=== PATIENT | female | born 1940 | race Caucasian/White ===

== ENCOUNTER → 2023-12-28 14:39 | Outpatient (REF) | payer MEDICARE, SELFPAY ==
[2023-12-28 15:11] LABS: Potassium 4.4 mmol/L (3.5-5.1)
== END ==
LOC: CLAB 14:39
PROVIDERS: ATTENDING PHYSICIAN Internal Medicine
DX: E87.5 Hyperkalemia (principal)
CPT/HCPCS: 36415; 84132

== ENCOUNTER 2024-03-11 11:00 | Emergency (ER) | payer MEDICARE, SELFPAY ==
[2024-03-11 11:07] VITALS: BP 131/43; BMI 32.0
[2024-03-11 11:24] LABS: % Eosinophils 2.9 % (0-6); % Immature Granulocytes 0.4 % (0-0.5); % Lymphocytes 16.6 % (20.5-51.1); % Monocytes 6.7 % (1.7-9.3); % Neutrophils 72.4 % (42.2-75.2); Absolute Basophils 0.1 10^3/uL (0-0.2); Absolute Eosinophils 0.4 10^3/uL (0-0.7); Absolute Immature Granulocytes 0.1 10^3/uL (0-0.05); Absolute Lymphocytes 2.3 10^3/uL (1.2-3.4); Absolute Monocytes 0.9 10^3/uL (0.1-0.6); Absolute Neutrophils 9.9 10^3/uL (1.4-6.5); Hematocrit 32.6 % (37.0-47.0); Hemoglobin 10.8 g/dL (12.0-16.0); Mean Corp Hgb Conc. 33.1 g/dL (33.0-37.0); Mean Corpuscular Hgb 32.1 pg (27.0-31.0); Mean Platelet Volume 10.4 fL (7.4-10.4); Nucleated Red Blood Cells % 0 %; Platelet Count 422 10^3/uL (130-400); Red Blood Cell Count 3.36 10^6/uL (4.20-5.40); Red Cell Dist. Width 14.2 % (11.5-14.5); White Blood Cell Count 13.7 10^3/uL (4.8-10.8)
[2024-03-11 11:35] LABS: Glucose - Point of Care 144 mg/dl (70-99)
[2024-03-11 11:40] LABS: ALT (SGPT) 49 U/L (0-35); AST (SGOT) 91 U/L (14-36); Albumin 2.7 g/dl (3.5-5.0); Alkaline Phosphatase 218 U/L (38-126); Blood Urea Nitrogen 11 mg/dl (7-17); Calcium 8.5 mg/dl (8.4-10.2); Carbon Dioxide 27 mmol/L (22-30); Chloride 105 mmol/L (98-107); Estimated Creatinine Clearance 66 ml/min; Glucose 123 mg/dl (70-99); Potassium 3.5 mmol/L (3.5-5.1); Sodium 137 mmol/L (135-145); Total Bilirubin 0.4 mg/dl (0.2-1.3); Total Protein 6.2 g/dl (6.3-8.2); eGFR > 60.00
[2024-03-11 14:34] VITALS: BP 149/79
[2024-03-11 15:00] VITALS: BP 149/80
[2024-03-11 16:00] VITALS: BP 158/94
--- NOTE | 2024-03-11 16:21 | ED.GENMED ---
History of Present Illness
General
Chief Complaint: Seizure
Source: patient and family
Exam Limitations: none
Time Seen by Provider: 03/11/24 11:22
Travel History
Have you had any contact with someone who has COVID-19?: No
Do you have any symptoms of coronavirus? Fever > 100 degrees, chills, cough, shortness of breath, sore throat, loss of taste or smell, muscle aches, or headache?: No
History of Present Illness
History of Present Illness:
83-year-old female with unfortunate history of metastatic colon cancer who presents after she had seizures today. She has had seizures in the past was not had open about a year. Patient has been dealing with orthostatic hypotension today after
standing up with physical therapy she had an event. Daughter is not sure if she had separate events but suspect she did have several small seizures. Patient now offers no current complaints but has been having some lower abdominal discomfort.
Patient was trying to get through some rehab to be able to speak with surgery regarding the possible removal of the colon tumor. The patient does have a colonic stent. Patient is on palliative care with Dr. Chavez.
Past History
Past History
ED Past Medical History: Cancer (Colon cancer), CVA (right sided weakness), HTN, Hypercholesterolemia, Seizures, Hypothyroidism and Other (UTI, )
ED Past Surgical History: None
Social History
Tobacco: Former smoker
Alcohol: None
Drug: None
Personal:
Living: with family
Employment: Retired
Family History
Family History: Other (reviewed and non-contributory)
Phy Exam
Physical Exam
Physical Exam:
CONSTITUTIONAL Patient alert and oriented to person, place and time. Well-appearing. Vital signs reviewed.
HEAD atraumatic, normocephalic.
EYES eyelids normal to inspection,, Extraocular muscles intact, Conjunctiva normal, Sclera normal.
NECK normal range of motion, Trachea midline, no jugular venous distention.
RESPIRATORY CHEST No respiratory distress noted, Chest expansion equal, Bilateral breath sounds clear.
CARDIOVASCULAR regular rate and rhythm, Heart sounds normal.
ABDOMEN abdomen nontender, moderate lower abdominal tenderness
BACK normal inspection, no obvious deformities
UPPER EXTREMITY range of motion normal, Motor strength normal, no cyanosis, no edema.
LOWER EXTREMITY range of motion normal, Motor strength normal, no cyanosis, no edema.
NEURO Speech normal, No focal motor deficits, Angelita coma scale 15, Memory normal, Cranial Nerves intact to screening exam.
SKIN skin warm, dry, and normal in color.
PSYCHIATRIC patient oriented to person place and time, Normal affect.
Course
Orders/Labs/Results
Orders:
Orders
03/11/24 11:17
Complete Blood Count/With Diff Urgent
Comprehensive Metabolic Panel Urgent
Keppra (Levetiracetam) [S] Routine
Comment: ADD ON
03/11/24 11:22
CT Head W/o Iv Contrast Urgent
Comment:
Reason For Exam: seizure
Bedside Glucose- Treatment ONCE
03/11/24 11:36
Add On- LAB Urgent
Tests Added?: Keppra
03/11/24 12:30
CT Abd/pelvis W Iv Cont Urgent
Comment:
Reason For Exam: lower abd pain, h/o colon ca
03/11/24 16:25
Bisacodyl [Dulcolax] 10 mg RECTAL NOW STA
Abnormal Lab Results
03/11/24 03/11/24
11:17 11:33
WBC 13.7 H 10^3/uL
(4.8-10.8)
RBC 3.36 L 10^6/uL
(4.20-5.40)
Hgb 10.8 L g/dL
(12.0-16.0)
Hct 32.6 L %
(37.0-47.0)
MCH 32.1 H pg
(27.0-31.0)
Plt Count 422 H 10^3/uL
(130-400)
Abs Immat Gran (auto) 0.1 H 10^3/uL
(0-0.05)
Absolute Neuts (auto) 9.9 H 10^3/uL
(1.4-6.5)
Absolute Monos (auto) 0.9 H 10^3/uL
(0.1-0.6)
Lymphocytes % 16.6 L %
(20.5-51.1)
Glucose 123 H mg/dl
(70-99)
AST 91 H U/L
(14-36)
ALT 49 H U/L
(0-35)
Alkaline Phosphatase 218 H U/L
(38-126)
Total Protein 6.2 L g/dl
(6.3-8.2)
Albumin 2.7 L g/dl
(3.5-5.0)
POC Glucose 144 H mg/dl
(70-99)
03/11/24 11:17
03/11/24 11:17
Vital Signs
Initial and Last Documented VS:
Initial Vital Signs
Temp Pulse Resp BP Pulse Ox
97.4 F 87 23 131/43 92
03/11/24 11:07 03/11/24 11:07 03/11/24 11:07 03/11/24 11:07 03/11/24 11:07
Last Documented Vital Signs
Temp Pulse Resp BP Pulse Ox
97.4 F 85 18 158/94 92
03/11/24 11:07 03/11/24 16:15 03/11/24 16:15 03/11/24 16:00 03/11/24 16:15
MDM/Problems Addressed
MDM/Problems Addressed:
Metastatic colon cancer, orthostatic hypotension, seizure disorder, acute seizures
*Radiology
Radiology exam reviewed: radiology read reviewed
*Pulse Oximetry
Patient hypoxic: no
*Licensing Worker Interpretation
Rate: normal
Interpretation: normal
Rhythm: sinus
*Critical Care Note
Total Time (30-74mins, 75-104mins- exclusive of procedures): 30 minutes
Data Reviewed
Review of Other/Old Records Reveals: Discharge Summary (Discharge summary from November 2023)
Source: patient
Prescriptions/Medications Considered But Not Given:
Ativan considered but no further seizures
Patient Management
Discussion with other providers: Palliative Senior [facility] (Case discussed with palliative care Dr. Chavez)
Escalation/DeEscalation of care consider admission/obs:
83-year-old female who had been diagnosed with colon cancer was trying to rehab to get stronger for possible surgery. Unfortunately she has several setbacks. Today had a seizure event which she has not had some time. I suspect her seizure event
was triggered by tension as she had just and felt little lightheaded. Mild lower abdominal tenderness noted. CT shows progression of her metastatic disease. Long discussion with family. At this time patient does not want to pursue any further
treatment of her cancer. I did offer admission/observation but patient would rather go home. Think this is reasonable. I did recommend enema but the patient would like to hold off. Will trial suppository and continue MiraLAX. Case was discussed
with palliative care will follow her closely. Patient will also follow-up with her neurologist
ED Attending Note
-
Portions of this chart may have been created with voice recognition software.� Occasional wrong word or��sound alike� substitutions may have occurred due to the inherent limitations of voice recognition software.
Discharge Plan
Departure
Patient Disposition: Home (Routine Discharge)
Date of Disposition: 03/11/24
Time of Disposition: 16:26
Patient with high blood pressure during this ER visit?: Yes
Discharge Problem:
Seizure, Orthostatic hypotension, Metastatic colon cancer to liver
Instructions: Seizures, Adult (DC), BLOOD PRESSURE
Prescriptions:
No Action
Centrum Silver Women 1 EACH tablet
1 ea PO DAILY
pantoprazole 40 MG tablet,delayed release (DR/EC)
40 mg PO DAILY
cyanocobalamin (vitamin B-12) 100 MCG tablet
100 mcg PO DAILY
acetaminophen 325 mg Tablet
650 mg PO Q4H MDD 3000mg/24hrs PRN (Reason: mild pain/fever>100.4)
atorvastatin 80 MG tablet
80 mg PO QPM
gabapentin 300 MG capsule
300 mg PO HS
calcium carbonate 500 mg calcium (1,250 mg) Tablet
500 mg PO BID
levothyroxine 125 mcg Tablet
125 mcg PO DAILY
gabapentin 300 mg Capsule
300 mg PO BID@0830,1430
levetiracetam 500 MG tablet
1,000 mg PO Q12H
nystatin [Nystop] 100,000 unit/gram powder
1 applic TOPICAL BIDPRN PRN (Reason: breasts and folds)
fludrocortisone 0.1 mg tablet
0.2 mg PO DAILY
midodrine 10 mg tablet
10 mg PO MOTUWETHFR
Rx Instructions:
10mg once daily in the AM before therapy [id number]--Monday
aspirin [Children's Aspirin] 81 mg tablet,chewable
81 mg PO DAILY
polyethylene glycol 3350 [Miralax] 17 gram/dose Powder
17 g PO DAILY
lidocaine HCl 2 % Gel
1 applic TOPICAL HS PRN (Reason: left upper thigh pain)
Referrals:
Marcelo Viramontes MD [Family Provider] -
Activity Restrictions/Additional Instructions:
Please see your doctor and your palliative care doctor in follow-up in the next 3 days. Please also follow-up with your neurologist. Return immediately for fevers, vomiting, recurrent seizures or any other concerns.
Interventions
Interventions:
*Risk Screen - Suicide Last Done: 03/11/24 11:07
*General Assessment Last Done: 03/11/24 11:07
*Neglect/Abuse Screening Last Done: 03/11/24 11:07
ED- Fall Risk Assessment Last Done: 03/11/24 11:14
*ED COVID-19 Vaccine History Last Done: 03/11/24 11:07
ED- Cardiac Assessment Last Done: 03/11/24 11:14
ED- Neurological Assessment Last Done: 03/11/24 11:14
ED- Pulmonary Assessment Last Done: 03/11/24 11:14
Discharge Date and Time
Print Language: LATVIAN
[2024-03-11] MEDS: DULCOLAX 10 MG RECTAL (17:04)
[2024-03-12 15:43] LABS: Keppra (Levetiracetam) 45 ug/mL (10-40)
== END 2024-03-11 17:52 | disposition home or self-care (01) ==
LOC: EMR 11:00
PROVIDERS: EMERGENCY PHYSICIAN Emergency Medicine; FAMILY PHYSICIAN Internal Medicine
DX: R56.9 Unspecified convulsions (principal); I95.1 Orthostatic hypotension; C18.9 Malignant neoplasm of colon, unspecified; C78.7 Secondary malignant neoplasm of liver and intrahepatic bile duct; Z87.891 Personal history of nicotine dependence
CPT/HCPCS: 99285; 70450; 74177; 80053; 80177; 82962; 85025; Q9967

== ENCOUNTER 2024-07-05 21:02 | Emergency (ER) | payer MEDICARE, SELFPAY ==
[2024-07-05 21:10] VITALS: BP 91/77
[2024-07-05 21:13] VITALS: BP 91/77
[2024-07-05 21:16] VITALS: BMI 33.4
[2024-07-05 21:25] LABS: % Basophils 1.1 % (0-2); % Eosinophils 2.2 % (0-6); % Immature Granulocytes 0.4 % (0-0.5); % Lymphocytes 20.2 % (20.5-51.1); % Monocytes 6.4 % (1.7-9.3); % Neutrophils 69.7 % (42.2-75.2); Absolute Basophils 0.1 10^3/uL (0-0.2); Absolute Eosinophils 0.3 10^3/uL (0-0.7); Absolute Immature Granulocytes 0.1 10^3/uL (0-0.05); Absolute Lymphocytes 2.6 10^3/uL (1.2-3.4); Absolute Monocytes 0.8 10^3/uL (0.1-0.6); Absolute Neutrophils 8.8 10^3/uL (1.4-6.5); Hematocrit 31.9 % (37.0-47.0); Hemoglobin 10.6 g/dL (12.0-16.0); Mean Corp Hgb Conc. 33.2 g/dL (33.0-37.0); Mean Corpuscular Hgb 31.3 pg (27.0-31.0); Mean Corpuscular Volume 94.1 fL (81.0-99.0); Mean Platelet Volume 10.2 fL (7.4-10.4); Nucleated Red Blood Cells % 0 %; Platelet Count 366 10^3/uL (130-400); Red Blood Cell Count 3.39 10^6/uL (4.20-5.40); Red Cell Dist. Width 14.6 % (11.5-14.5); White Blood Cell Count 12.7 10^3/uL (4.8-10.8)
[2024-07-05 21:36] VITALS: BP 106/51
[2024-07-05 21:40] LABS: ALT (SGPT) 60 U/L (0-35); AST (SGOT) 107 U/L (14-36); Albumin 3.1 g/dl (3.5-5.0); Alkaline Phosphatase 333 U/L (38-126); Blood Urea Nitrogen 9 mg/dl (7-17); Calcium 8.7 mg/dl (8.4-10.2); Carbon Dioxide 25 mmol/L (22-30); Chloride 106 mmol/L (98-107); Estimated Creatinine Clearance 67 ml/min; Glucose 133 mg/dl (70-99); Potassium 4.1 mmol/L (3.5-5.1); Sodium 136 mmol/L (135-145); Total Bilirubin 0.5 mg/dl (0.2-1.3); Total Protein 6.5 g/dl (6.3-8.2); eGFR > 60.00
--- NOTE | 2024-07-05 21:47 | ED.GENMED ---
History of Present Illness
<Renee Henry NP - Last Filed: 07/06/24 19:23>
General
Chief Complaint: Fainting/Passed Out
Source: patient and family (daughter)
Exam Limitations: none
Time Seen by Provider: 07/05/24 21:16
History of Present Illness
History of Present Illness:
Patient to ED for eval after seizure tonight. Patient was sitting watching TV when daughter noted that patient did not look right to her. Patient states she did not feel well and then had an absent seizure. Daughter states she initially stares
and is not responsive. Daughter states at one point patient started to snore but still not responsive. Daughter reports it took approx 45 minutes for patient to become responsive. She is now awake and alert, has no complaints. Takes 1500mg Keppra
BID. Daughter and pateint report compliance. Treated for UTI last week, otherwise no changes to care. History of COlon CA with mets to liver. She is not treating. Follows [facility] Palliative care. Brought to ED by EMS for eval.
Past History
<Renee Henry SALES RELATIONSHIP MANAGER - Last Filed: 07/06/24 19:23>
Past History
ED Past Medical History: Cancer (Colon cancer), CVA (right sided weakness), HTN, Hypercholesterolemia, Seizures, Hypothyroidism and Other (UTI, )
ED Past Surgical History: None
Social History
Tobacco: Former smoker
Alcohol: None
Drug: None
Personal:
Living: with family
Employment: Retired
Family History
Family History: Other (reviewed and non-contributory)
Review of Systems
<Renee Henry SALES RELATIONSHIP MANAGER - Last Filed: 07/06/24 19:23>
Review of Systems
Allergies reviewed?: Yes
All Other Systems: ROS reviewed and negative except as documented in HPI and ROS
Constitutional: Reports no symptoms
EENT: Reports no symptoms
Respiratory: Reports no symptoms
Cardiac: Reports no symptoms
ABD/GI: Reports no symptoms
Musculoskeletal: Reports no symptoms
Skin: Reports no symptoms
Neurological: Reports other (Absent seizure NATURALIST)
Psychiatric: Reports no symptoms
Phy Exam
<Renee Henry NP - Last Filed: 07/06/24 19:23>
General Physical Exam
General Presentation: well appearing and no apparent distress
General age: appears stated age
General Skin: warm and dry
General Habitus: normal
Cardiovascular Exam
Cardiovascular Exam: regular rate/rhythm
Gastrointestinal Exam
Gastrointestinal Exam: non tender, soft, no organomegaly and non distended
Neurological Exam
Neurological Exam: alert, oriented x3, CN II-XII intact, no motor deficits, no sensory deficits and speech normal
Musculoskeletal Exam
Musculoskeletal Exam: full ROM and neuro vasc intact
Skin Exam
Skin Exam: normal color, warm/dry and no rash
Psychiatric Exam
Psychiatric Exam: normal mood/affect
Course
<Renee Henry NP - Last Filed: 07/06/24 19:23>
Orders/Labs/Results
Orders:
Orders
07/05/24 21:16
Electrocardiogram (*1) Urgent
Reason for Study: Chest Pain
Cardiac Monitoring- Treatment ONCE
EKG- Treatment ONCE
07/05/24 21:19
Complete Blood Count/With Diff Urgent
Comprehensive Metabolic Panel Urgent
Troponin I Urgent
07/05/24 21:53
CT Head W/o Iv Contrast Urgent
Comment:
Reason For Exam: seizure
07/05/24 22:02
Keppra (Levetiracetam) [S] Urgent
07/05/24 23:28
Urinalysis Reflex To Culture Urgent
Date Specimen was Collected: 07/05/24
Time Specimen was Collected: 23:28
Urine Microscopic Reflex Cult Urgent
Urine Culture Urgent
MEL Source: U
Specimen Description:
Date Specimen was Collected: 07/05/24
Time Specimen was Collected: 23:28
Abnormal Lab Results
07/05/24 07/05/24
21:19 23:28
WBC 12.7 H 10^3/uL
(4.8-10.8)
RBC 3.39 L 10^6/uL
(4.20-5.40)
Hgb 10.6 L g/dL
(12.0-16.0)
Hct 31.9 L %
(37.0-47.0)
MCH 31.3 H pg
(27.0-31.0)
RDW 14.6 H %
(11.5-14.5)
Abs Immat Gran (auto) 0.1 H 10^3/uL
(0-0.05)
Absolute Neuts (auto) 8.8 H 10^3/uL
(1.4-6.5)
Absolute Monos (auto) 0.8 H 10^3/uL
(0.1-0.6)
Lymphocytes % 20.2 L %
(20.5-51.1)
Glucose 133 H mg/dl
(70-99)
AST 107 H U/L
(14-36)
ALT 60 H U/L
(0-35)
Alkaline Phosphatase 333 H U/L
(38-126)
Albumin 3.1 L g/dl
(3.5-5.0)
Ur Occult Blood Reflex 3+ A
(Negative)
Leukocyte Esterase Rfl 2+ A
(Negative)
Urine RBC 3-6 A /HPF
(0-2)
Urine WBC (Reflex) 11-15 A /HPF
(0-5)
Urine Bacteria (Reflex) Moderate A
(Negative)
07/05/24 21:19
07/05/24 21:19
Vital Signs
Initial and Last Documented VS:
Initial Vital Signs
Pulse Ox
93
07/05/24 21:08
Last Documented Vital Signs
Temp Pulse Resp BP Pulse Ox
98.4 F 102 23 110/72 94
07/05/24 21:13 07/06/24 01:08 07/06/24 01:08 07/06/24 01:08 07/06/24 01:08
<Ronald Scott MD - Last Filed: 07/06/24 01:04>
Orders/Labs/Results
Orders:
Orders
07/05/24 21:16
Electrocardiogram (*1) Urgent
Reason for Study: Chest Pain
Cardiac Monitoring- Treatment ONCE
EKG- Treatment ONCE
07/05/24 21:19
Complete Blood Count/With Diff Urgent
Comprehensive Metabolic Panel Urgent
Troponin I Urgent
07/05/24 21:53
CT Head W/o Iv Contrast Urgent
Comment:
Reason For Exam: seizure
07/05/24 22:02
Keppra (Levetiracetam) [S] Urgent
07/05/24 23:28
Urinalysis Reflex To Culture Urgent
Date Specimen was Collected: 07/05/24
Time Specimen was Collected: 23:28
Urine Microscopic Reflex Cult Urgent
Urine Culture Urgent
MEL Source: U
Specimen Description:
Date Specimen was Collected: 07/05/24
Time Specimen was Collected: 23:28
Abnormal Lab Results
07/05/24 07/05/24
21:19 23:28
WBC 12.7 H 10^3/uL
(4.8-10.8)
RBC 3.39 L 10^6/uL
(4.20-5.40)
Hgb 10.6 L g/dL
(12.0-16.0)
Hct 31.9 L %
(37.0-47.0)
MCH 31.3 H pg
(27.0-31.0)
RDW 14.6 H %
(11.5-14.5)
Abs Immat Gran (auto) 0.1 H 10^3/uL
(0-0.05)
Absolute Neuts (auto) 8.8 H 10^3/uL
(1.4-6.5)
Absolute Monos (auto) 0.8 H 10^3/uL
(0.1-0.6)
Lymphocytes % 20.2 L %
(20.5-51.1)
Glucose 133 H mg/dl
(70-99)
AST 107 H U/L
(14-36)
ALT 60 H U/L
(0-35)
Alkaline Phosphatase 333 H U/L
(38-126)
Albumin 3.1 L g/dl
(3.5-5.0)
Ur Occult Blood Reflex 3+ A
(Negative)
Leukocyte Esterase Rfl 2+ A
(Negative)
Urine RBC 3-6 A /HPF
(0-2)
Urine WBC (Reflex) 11-15 A /HPF
(0-5)
Urine Bacteria (Reflex) Moderate A
(Negative)
07/05/24 21:19
07/05/24 21:19
Vital Signs
Initial and Last Documented VS:
Initial Vital Signs
Pulse Ox
93
07/05/24 21:08
Last Documented Vital Signs
Temp Pulse Resp BP Pulse Ox
98.4 F 102 23 110/72 94
07/05/24 21:13 07/06/24 01:08 07/06/24 01:08 07/06/24 01:08 07/06/24 01:08
<Renee Henry NP - Last Filed: 07/06/24 19:23>
*Radiology
Radiology exam reviewed: radiology read reviewed
*Critical Care Note
Total Time (30-74mins, 75-104mins- exclusive of procedures): Not Applicable
ED Attending Note
<Renee Henry NP - Last Filed: 07/06/24 19:23>
-
Portions of this chart may have been created with voice recognition software.� Occasional wrong word or��sound alike� substitutions may have occurred due to the inherent limitations of voice recognition software.
<Ronald Scott MD - Last Filed: 07/06/24 01:04>
ED Attending Note
Patient seen and examined by attending physician: Yes
ED Attending Note:
I have seen and evaluated the patient with a [id number] encounter. I have spoken to the advance practicer provider and involved in the medical history, the physical exam, medical decision making.
Evaluation and management service: agree unless noted differently below.
Results interpretation: agree unless noted differently below.
Focused HPI: 84-year-old female with history as documented presents after a seizure. Witnessed seizure by her daughter. Has a known seizure disorder follows with neurology as an outpatient. Takes Keppra 1500 mg twice daily and reports compliance.
Notably had recent treatment with Macrobid for UTI last week; only symptom was generalized fatigue.
Physical exam: Awake and alert, oriented x 3. Vital signs normal on my assessment. Shows no gross neurologic deficits in the extremities equally.
Medical Decision Makin-year-old female presents for evaluation after witnessed seizure in the setting of known seizure disorder. Apparently transient hypotension for EMS that resolved with fluids. She has been observed here in the emergency
room is back to baseline. She was evaluated with basic blood work which was essentially in line with her baseline. She had CT head which was negative. She had a urinalysis which appears at least somewhat contaminated but does have bacteria and
pyuria�culture sent off, cefdinir. Stable for discharge; in fact patient is requesting discharge. Will follow-up with neurologist and PCP. All questions answered.
Discharge Plan
Departure
Patient Disposition: Home (Routine Discharge)
Date of Disposition: 07/06/24
Time of Disposition: 01:02
Patient with high blood pressure during this ER visit?: No
Condition: Good
Covid-19: Not Applicable
Discharge Problem:
Seizure, UTI (urinary tract infection)
Instructions: Seizures
Prescriptions:
New
cefdinir 300 mg capsule
300 mg PO BID 5 Days Qty: 10 0RF
No Action
Centrum Silver Women 1 EACH tablet
1 ea PO DAILY
pantoprazole 40 MG tablet,delayed release (DR/EC)
40 mg PO DAILY
cyanocobalamin (vitamin B-12) 100 MCG tablet
100 mcg PO DAILY
acetaminophen 325 mg Tablet
650 mg PO Q4H MDD 3000mg/24hrs PRN (Reason: mild pain/fever>100.4)
gabapentin 300 MG capsule
300 mg PO HS
levothyroxine 125 mcg Tablet
125 mcg PO DAILY
gabapentin 300 mg Capsule
300 mg PO BID@0830,1430
levetiracetam 500 MG tablet
1,500 mg PO Q12H
nystatin [Nystop] 100,000 unit/gram powder
1 applic TOPICAL BIDPRN PRN (Reason: breasts and folds)
midodrine 10 mg tablet
10 mg PO MOTUWETHFR
Rx Instructions:
10mg once daily in the AM before therapy [id number]--Monday
aspirin [Children's Aspirin] 81 mg tablet,chewable
81 mg PO DAILY
polyethylene glycol 3350 [Miralax] 17 gram/dose Powder
17 g PO DAILY
lactulose 10 gram/15 mL (15 mL) Solution
15 ml PO DAILY
lidocaine HCl 2 % Gel
1 applic TOPICAL HS PRN (Reason: left upper thigh pain)
Referrals:
Marcelo Viramontes MD [Family Provider] - Follow up in 2-3 days
Activity Restrictions/Additional Instructions:
Thank you for visiting the Emergency Department at [facility].
1. Please schedule a follow up appointment as directed. Call first thing tomorrow morning to make an appointment.
2. If indicated, please take your medications as instructed and indicated on discharge paperwork.
3. If any of your symptoms do not improve, or persist, or become more severe within 6-12 hours, please return to the emergency department for further care.
4. Please return to the emergency department if you develop a headache, neck pain/stiffness, fever greater than 100.4F, chest pain, shortness of breath, persistent nausea, vomiting, slurred speech, difficulty walking, numbness/tingling, weakness,
signs of infection or any other symptoms that are worrisome to you.
Please call [phone] if you have any questions.
Interventions
Interventions:
*Risk Screen - Suicide Last Done: 07/05/24 21:16
*General Assessment Last Done: 07/05/24 21:16
*Neglect/Abuse Screening Last Done: 07/05/24 21:16
ED- Fall Risk Assessment Last Done: 07/05/24 21:18
*ED COVID-19 Vaccine History Last Done: 07/05/24 21:16
*Nursing Disposition Last Done: 07/06/24 01:30
ED- Cardiac Assessment Last Done: 07/05/24 22:37
ED- Neurological Assessment Last Done: 07/05/24 22:37
Discharge Date and Time
Discharge Date/Time: 07/06/24 01:32
Print Language: GERMAN
[2024-07-05 21:57] LABS: Troponin I < 0.012 ng/ml
[2024-07-05 22:00] VITALS: BP 122/55
[2024-07-05 23:00] VITALS: BP 116/57
[2024-07-05 23:47] LABS: Urine Albumin Trace (Neg - Trace); Urine Bilirubin Negative (Negative); Urine Character Clear (Clear); Urine Color Yellow; Urine Glucose Negative (Negative); Urine Ketone Negative (Negative); Urine Leukocyte 2+ (Negative); Urine Nitrite Negative (Negative); Urine Occult Blood 3+ (Negative); Urine Urobilinogen Negative (Neg - 1+)
[2024-07-06] VITALS: BP 135/62
[2024-07-06 00:53] LABS: Urine Bacteria Moderate (Negative); Urine Squamous Cell >30 /LPF (Few)
[2024-07-06 01:00] VITALS: BP 110/72; BP 144/74; BP 154/69; PULSE 102; PULSE 120; PULSE 84
[2024-07-06 01:05] VITALS: BP 144/74
[2024-07-06 01:08] VITALS: BP 110/72
[2024-07-08 12:05] LABS: Keppra (Levetiracetam) 48 ug/mL (10-40)
== END 2024-07-06 01:32 | disposition home or self-care (01) ==
LOC: EMR 21:02
PROVIDERS: Nurse Practitioner; EMERGENCY PHYSICIAN Emergency Medicine; FAMILY PHYSICIAN Internal Medicine
DX: R56.9 Unspecified convulsions (principal); N39.0 Urinary tract infection, site not specified; I69.351 Hemiplegia and hemiparesis following cerebral infarction affecting right dominant side; G40.909 Epilepsy, unspecified, not intractable, without status epilepticus; I10 Essential (primary) hypertension; E78.00 Pure hypercholesterolemia, unspecified; E03.9 Hypothyroidism, unspecified; Z85.038 Personal history of other malignant neoplasm of large intestine; C78.7 Secondary malignant neoplasm of liver and intrahepatic bile duct; Z87.440 Personal history of urinary (tract) infections; Z87.891 Personal history of nicotine dependence; Z79.899 Other long term (current) drug therapy; Z79.82 Long term (current) use of aspirin
CPT/HCPCS: 99284; 70450; 80053; 80177; 81003; 81015; 84484; 85025; 87086; 93005

== ENCOUNTER 2024-07-31 14:15 | Emergency (ER) | payer MEDICARE, SELFPAY ==
[2024-07-31 14:21] VITALS: BMI 32.3
[2024-07-31 14:26] VITALS: BP 113/70
[2024-07-31 15:00] VITALS: BP 127/64
[2024-07-31 15:03] LABS: % Basophils 1.1 % (0-2); % Immature Granulocytes 0.5 % (0-0.5); % Monocytes 7.3 % (1.7-9.3); % Neutrophils 73.1 % (42.2-75.2); Absolute Basophils 0.2 10^3/uL (0-0.2); Absolute Eosinophils 0.4 10^3/uL (0-0.7); Absolute Immature Granulocytes 0.1 10^3/uL (0-0.05); Absolute Lymphocytes 2.1 10^3/uL (1.2-3.4); Absolute Neutrophils 10.2 10^3/uL (1.4-6.5); Hematocrit 31.2 % (37.0-47.0); Hemoglobin 10.9 g/dL (12.0-16.0); Mean Corp Hgb Conc. 34.9 g/dL (33.0-37.0); Mean Corpuscular Hgb 32.4 pg (27.0-31.0); Mean Corpuscular Volume 92.9 fL (81.0-99.0); Mean Platelet Volume 11.4 fL (7.4-10.4); Nucleated Red Blood Cells % 0 %; Platelet Count 336 10^3/uL (130-400); Red Blood Cell Count 3.36 10^6/uL (4.20-5.40); White Blood Cell Count 13.9 10^3/uL (4.8-10.8)
--- NOTE | 2024-07-31 15:05 | ED.GENMED ---
History of Present Illness
<Janet Ashley PA-C - Last Filed: 07/31/24 20:22>
General
Chief Complaint: Abnormal Lab Value
Source: patient
Exam Limitations: none
Time Seen by Provider: 07/31/24 15:04
Nursing documentation reviewed up to this point in time: agreed with
History of Present Illness
History of Present Illness:
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
the past week as well as increasing jaundice and generalized weakness. Daughter present in room reports that patient has also had increased nausea the past week. Patient is on palliative care for her colon cancer, she does not currently receive
any pain control regimen at home, does not receive at home nursing care. Does not currently follow with a GI doctor anymore her oncologist. Patient denies any fevers or chills. Patient states that she is able to have bowel movements because of a
stent placed in her colon and notes that she has no changes to her bowel movements. Daughter reports that she is also been not eating recently. Patient denies any dysuria, hematuria. Of note, patient was scheduled to have surgery a year ago for
her colon cancer, however she is not able to recover after COVID and it was decided that she would not be strong enough for the surgery. Patient denies alcohol use. Patient denies recent frequent Tylenol use.
Past History
<Janet Ashley PA-C - Last Filed: 07/31/24 20:22>
Past History
ED Past Medical History: Cancer (Colon cancer), CVA (right sided weakness), HTN, Hypercholesterolemia, Seizures, Hypothyroidism and Other (UTI, )
ED Past Surgical History: None
Social History
Tobacco: Former smoker
Alcohol: None
Drug: None
Personal:
Living: with family
Employment: Retired
Family History
Family History: Other (reviewed and non-contributory)
Review of Systems
<Janet Ashley PA-C - Last Filed: 07/31/24 20:22>
Review of Systems
All Other Systems: ROS reviewed and negative except as documented in HPI and ROS
Phy Exam
<Janet Ashley PA-C - Last Filed: 07/31/24 20:22>
Physical Exam
Physical Exam:
General: Patient is chronically ill appearing but non-toxic
Skin: Warm and dry, jaundice noted.
Head: Normocephalic, atraumatic
Eyes: Scleral icterus noted. EOMs intact. PERRLA.
Cardiac: Regular rate and rhythm, no murmurs
Peripheral Vascular: No lower extremity swelling or edema.
Pulm: Normal respiratory effort, no wheezes, rales, or rhonchi
Abdomen: No abdominal tenderness to palpation. No abdominal distension. No palpable abdominal masses.
Neuro: CN II-XII intact, no focal neurologic deficits. PERRLA.
Psychiatric: Appropriate mood and affect.
Course
<Janet Ashley PA-C - Last Filed: 07/31/24 20:22>
Orders/Labs/Results
Orders:
Orders
07/31/24 14:41
Electrocardiogram (*1) Urgent
Reason for Study: Abdominal Pain
EKG- Treatment ONCE
IV Insert/Care/Rem.- Treatment PRN
07/31/24 14:42
Ammonia Urgent
Complete Blood Count/With Diff Urgent
Comprehensive Metabolic Panel Urgent
Lipase Urgent
07/31/24 15:32
CT Abd/pelvis W Iv Cont Urgent
Comment:
Reason For Exam: abdominal pain, colon cancer mets to liver
07/31/24 15:33
0.9% Sodium Chloride 500 ml [Nss] 500 ml IV BOLUS
07/31/24 18:29
Add On- LAB Urgent
Tests Added?: keppra level
07/31/24 18:49
Keppra (Levetiracetam) [S] Urgent
Comment: COLLECT.
Abnormal Lab Results
07/31/24
14:42
WBC 13.9 H 10^3/uL
(4.8-10.8)
RBC 3.36 L 10^6/uL
(4.20-5.40)
Hgb 10.9 L g/dL
(12.0-16.0)
Hct 31.2 L %
(37.0-47.0)
MCH 32.4 H pg
(27.0-31.0)
RDW 19.0 H %
(11.5-14.5)
MPV 11.4 H fL
(7.4-10.4)
Abs Immat Gran (auto) 0.1 H 10^3/uL
(0-0.05)
Absolute Neuts (auto) 10.2 H 10^3/uL
(1.4-6.5)
Absolute Monos (auto) 1.0 H 10^3/uL
(0.1-0.6)
Lymphocytes % 15.0 L %
(20.5-51.1)
Glucose 128 H mg/dl
(70-99)
Total Bilirubin 9.2 H mg/dl
(0.2-1.3)
AST 179 H U/L
(14-36)
ALT 99 H U/L
(0-35)
Alkaline Phosphatase 430 H U/L
(38-126)
Albumin 2.9 L g/dl
(3.5-5.0)
07/31/24 14:42
07/31/24 14:42
Vital Signs
Initial and Last Documented VS:
Initial Vital Signs
Temp Pulse Resp BP Pulse Ox
97.8 F 94 20 113/70 95
07/31/24 14:26 07/31/24 14:26 07/31/24 14:26 07/31/24 14:26 07/31/24 14:26
Last Documented Vital Signs
Temp Pulse Resp BP Pulse Ox
97.8 F 103 16 125/66 95
07/31/24 14:26 07/31/24 18:51 07/31/24 18:00 07/31/24 16:30 07/31/24 16:30
<Miguelito Dye, DO - Last Filed: 07/31/24 18:52>
Orders/Labs/Results
Orders:
Orders
07/31/24 14:41
Electrocardiogram (*1) Urgent
Reason for Study: Abdominal Pain
EKG- Treatment ONCE
IV Insert/Care/Rem.- Treatment PRN
07/31/24 14:42
Ammonia Urgent
Complete Blood Count/With Diff Urgent
Comprehensive Metabolic Panel Urgent
Lipase Urgent
07/31/24 15:32
CT Abd/pelvis W Iv Cont Urgent
Comment:
Reason For Exam: abdominal pain, colon cancer mets to liver
07/31/24 15:33
0.9% Sodium Chloride 500 ml [Nss] 500 ml IV BOLUS
07/31/24 18:29
Add On- LAB Urgent
Tests Added?: keppra level
07/31/24 18:49
Keppra (Levetiracetam) [S] Urgent
Comment: COLLECT.
Abnormal Lab Results
07/31/24
14:42
WBC 13.9 H 10^3/uL
(4.8-10.8)
RBC 3.36 L 10^6/uL
(4.20-5.40)
Hgb 10.9 L g/dL
(12.0-16.0)
Hct 31.2 L %
(37.0-47.0)
MCH 32.4 H pg
(27.0-31.0)
RDW 19.0 H %
(11.5-14.5)
MPV 11.4 H fL
(7.4-10.4)
Abs Immat Gran (auto) 0.1 H 10^3/uL
(0-0.05)
Absolute Neuts (auto) 10.2 H 10^3/uL
(1.4-6.5)
Absolute Monos (auto) 1.0 H 10^3/uL
(0.1-0.6)
Lymphocytes % 15.0 L %
(20.5-51.1)
Glucose 128 H mg/dl
(70-99)
Total Bilirubin 9.2 H mg/dl
(0.2-1.3)
AST 179 H U/L
(14-36)
ALT 99 H U/L
(0-35)
Alkaline Phosphatase 430 H U/L
(38-126)
Albumin 2.9 L g/dl
(3.5-5.0)
07/31/24 14:42
07/31/24 14:42
Vital Signs
Initial and Last Documented VS:
Initial Vital Signs
Temp Pulse Resp BP Pulse Ox
97.8 F 94 20 113/70 95
07/31/24 14:26 07/31/24 14:26 07/31/24 14:26 07/31/24 14:26 07/31/24 14:26
Last Documented Vital Signs
Temp Pulse Resp BP Pulse Ox
97.8 F 103 16 125/66 95
07/31/24 14:26 07/31/24 18:51 07/31/24 18:00 07/31/24 16:30 07/31/24 16:30
<Janet Ashley PA-C - Last Filed: 07/31/24 20:22>
MDM/Problems Addressed
Differential Diagnosis Includes:
ddx include liver metastasis, bowel obstruction,, bile duct compression, cholecystitis, Tylenol toxicity
MDM/Problems Addressed:
Abdominal pain:
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
the past week as well as increasing jaundice and generalized weakness. She has never had treatment for her colon cancer and she is currently on palliative care, she sees Dr. Chavez for palliative care measures. She does not have any home nursing
care or any pain control regimen. On physical exam, she is chronically ill-appearing, but she has no fever, does not appear acutely toxic, no respiratory distress. She is no abdominal tenderness palpation, no abdominal distention. CT scan of the
abdomen pelvis was ordered which revealed progression of metastatic disease but no bowel obstruction, no perforation, no evidence of cholecystitis or duct dilatation. Patient's symptoms likely represent a progression of patient's chronic metastatic
disease. Family is concerned that recent increase of Keppra dose may be hepatotoxic. Patient takes Keppra for post CVA seizures we did send off Keppra level, and advised follow-up with her prescribing provider. Family and patient declining
admission for GI oncology referral and treatment plan at this time. Patient stable for discharge.
Chronic conditions affecting care:
Metastatic colon cancer, prior CVA with residual weakness/seizures, hypertension, hyperlipidemia
Acute Exacerbation and/or Progression of Chronic Illness:
n/a
<Janet Ashley PA-C - Last Filed: 07/31/24 20:22>
*Pulse Oximetry
Patient hypoxic: no
*Critical Care Note
Total Time (30-74mins, 75-104mins- exclusive of procedures): Not Applicable
Data Reviewed
Review of Other/Old Records Reveals: Records (Reviewed previous records from ER physician documentation from 07/05/2024 patient was seen for a seizure, reviewed ER physician documentation from 03/11/2024 patient was also seen for seizures and had CAT
scan done of the abdomen at which time there was discussion about further care and treatment which) and Discharge Summary (Reviewed discharge summary from 12/12/2023, patient bedbound at baseline, limited treatment options)
Source: patient and records
Prescriptions/Medications Considered But Not Given:
n/a
Further Testing Considered But Not Given:
n/a
<Miguelito Dye, - Last Filed: 07/31/24 18:52>
Update Note
Update Note:
Update, Long conversation with patient family members, she is being cared for by the palliative care team with Dr. Chavez I did reach out to her as well, ultimately patient would like to go home which I think is reasonable
ED Attending Note
<Janet Ashley PA-C - Last Filed: 07/31/24 20:22>
-
Portions of this chart may have been created with voice recognition software.� Occasional wrong word or��sound alike� substitutions may have occurred due to the inherent limitations of voice recognition software.
<Miguelito Dye, - Last Filed: 07/31/24 18:52>
ED Attending Note
Patient seen and examined by attending physician: Yes
I performed the substantive portion of visit, reviewed & personally made and approve the management plan that is documented in note by myself or CRISTOBAL.: Yes
ED Attending Note:
Seen with MIGUEL ÁNGEL examined independently 84-year-old female metastatic colon cancer not under treatment apparently is under palliative care, 1 to 2 weeks of failure to thrive jaundice now slightly confused but in no pain suspect she has progressive
disease, biliary obstruction based on history and physical check CAT scan, disposition? May be candidate for hospice at this point
Discharge Plan
Departure
Patient Disposition: Home (Routine Discharge)
Date of Disposition: 07/31/24
Time of Disposition: 18:52
Patient with high blood pressure during this ER visit?: No
Condition: Good
Discharge Problem:
Metastatic colon cancer to liver
Instructions: BLOOD PRESSURE
Prescriptions:
No Action
Centrum Silver Women 1 EACH tablet
1 ea PO DAILY
pantoprazole 40 MG tablet,delayed release (DR/EC)
40 mg PO DAILY
cyanocobalamin (vitamin B-12) 100 MCG tablet
100 mcg PO DAILY
acetaminophen 325 mg Tablet
650 mg PO Q4H MDD 3000mg/24hrs PRN (Reason: mild pain/fever>100.4)
gabapentin 300 MG capsule
300 mg PO HS
levothyroxine 125 mcg Tablet
125 mcg PO DAILY
gabapentin 300 mg Capsule
300 mg PO BID@0830,1430
levetiracetam 500 MG tablet
1,500 mg PO Q12H
nystatin [Nystop] 100,000 unit/gram powder
1 applic TOPICAL BIDPRN PRN (Reason: breasts and folds)
midodrine 10 mg tablet
10 mg PO MOTUWETHFR
Rx Instructions:
10mg once daily in the AM before therapy [id number]--Monday
aspirin [Children's Aspirin] 81 mg tablet,chewable
81 mg PO DAILY
polyethylene glycol 3350 [Miralax] 17 gram/dose Powder
17 g PO DAILY
lactulose 10 gram/15 mL (15 mL) Solution
15 ml PO DAILY
cefdinir 300 mg capsule
300 mg PO BID 5 Days Qty: 10 0RF
lidocaine HCl 2 % Gel
1 applic TOPICAL HS PRN (Reason: left upper thigh pain)
Referrals:
Marcelo Viramontes MD [Family Provider] -
Activity Restrictions/Additional Instructions:
Please follow-up with Dr. Chavez.
Please return emergency department should you experience any acute worsening of your symptoms.
Interventions
Interventions:
*Risk Screen - Suicide Last Done: 07/31/24 14:26
*General Assessment Last Done: 07/31/24 14:26
*Neglect/Abuse Screening Last Done: 07/31/24 14:26
ED- Fall Risk Assessment Last Done: 07/31/24 14:26
*Nursing Disposition Last Done: 07/31/24 19:37
Discharge Date and Time
Discharge Date/Time: 07/31/24 19:37
Print Language: JAPANESE
[2024-07-31 15:07] LABS: Ammonia 18 umol/L (9-30)
[2024-07-31 15:08] LABS: ALT (SGPT) 99 U/L (0-35); AST (SGOT) 179 U/L (14-36); Albumin 2.9 g/dl (3.5-5.0); Alkaline Phosphatase 430 U/L (38-126); Blood Urea Nitrogen 10 mg/dl (7-17); Calcium 8.7 mg/dl (8.4-10.2); Carbon Dioxide 26 mmol/L (22-30); Chloride 106 mmol/L (98-107); Estimated Creatinine Clearance 66 ml/min; Glucose 128 mg/dl (70-99); Lipase 46 U/L (23-300); Potassium 4.2 mmol/L (3.5-5.1); Sodium 142 mmol/L (135-145); Total Bilirubin 9.2 mg/dl (0.2-1.3); Total Protein 6.8 g/dl (6.3-8.2); eGFR > 60.00
[2024-07-31 15:30] VITALS: BP 126/62
[2024-07-31] MEDS: NSS 500 IV (15:45)
[2024-07-31 16:00] VITALS: BP 109/53
[2024-07-31 16:30] VITALS: BP 125/66
[2024-08-02 22:52] LABS: Keppra (Levetiracetam) 59 ug/mL (10-40)
== END 2024-07-31 19:37 | disposition home or self-care (01) ==
LOC: EMR 14:15
PROVIDERS: Emergency Medicine; EMERGENCY PHYSICIAN Emergency Medicine; FAMILY PHYSICIAN Internal Medicine
DX: C78.7 Secondary malignant neoplasm of liver and intrahepatic bile duct (principal); C18.9 Malignant neoplasm of colon, unspecified; Z87.891 Personal history of nicotine dependence; Z86.73 Personal history of transient ischemic attack (TIA), and cerebral infarction without residual deficits; E03.9 Hypothyroidism, unspecified; I10 Essential (primary) hypertension
CPT/HCPCS: 99285; 96360; 74177; 80053; 80177; 82140; 83690; 85025; 93005; Q9967